=== PATIENT | female | born 1980 | race Two or more races ===

== ENCOUNTER 2024-03-12 09:04 | Outpatient (CLI) | payer OTHER | END 2024-03-12 09:09 | disposition home or self-care (01) | LOC: SONOGRAMA 09:04 | PROVIDERS: ATTEND Pathology Anatomic Pathology & Clinical Pathology | DX: D34 Benign neoplasm of thyroid gland (principal); E06.3 Autoimmune thyroiditis; E04.1 Nontoxic single thyroid nodule ==